=== PATIENT | female | born 1990 | race African-American/Black ===

== ENCOUNTER 2018-08-28 15:29 | Emergency (ER) | payer BC, OTHER ==
[~2018-08-28] VITALS: Ht 160 cm; Wt 64.7 kg
[2018-08-28 16:04] LABS: CLARITY,URINE SLIGHTLY CLOUDY (Clear); COLOR,URINE YELLOW (Yellow); GLUCOSE, URINE NEGATIVE (Neg); KETONES,URINE NEGATIVE (Neg); LEUKOCYTE ESTERASE ,URINE NEGATIVE (Neg); NITRITES, URINE NEGATIVE (Neg); OCCULT BLOOD,URINE NEGATIVE (Neg); PROTEIN,URINE NEGATIVE (Neg); URINE HCG NEGATIVE (NEG); UROBILINOGEN,URINE 0.2 E.U/dL (0.2-1.0)
[2018-08-28 16:05] LABS: BASOPHILS % (AUTO) 0.2 % (0-1); EOSINOPHILS # (AUTO) 0.1 X10'3 (0-0.9); EOSINOPHILS % (AUTO) 0.6 % (0-6); HEMATOCRIT 40.1 % (35.0-45.0); HEMOGLOBIN 13.3 g/dl (12.0-16.0); LYMPHOCYTES # (AUTO) 2.8 X10'3 (1.1-4.8); LYMPHOCYTES % (AUTO) 32.4 % (21-51); MEAN CORPUSCULAR HEMOGLOBIN 28.2 PG (27.0-31.0); MEAN CORPUSCULAR HGB CONC 33.3 % (33.0-36.5); MEAN CORPUSCULAR VOLUME 84.9 FL (78-98); MEAN PLATELET VOLUME 8.4 FL (7.4-10.4); MONOCYTES # (AUTO) 0.6 X10'3 (0-0.9); MONOCYTES % (AUTO) 6.8 % (2-12); NEUTROPHILS # (AUTO) 5.1 X10'3 (1.8-7.7); PLATELET COUNT 290 X10'3 (140-440); RED BLOOD COUNT 4.72 X10'6 (4.20-5.60); RED CELL DISTRIBUTION WIDTH 13.7 % (11.5-14.5); WHITE BLOOD COUNT 8.6 X10'3 (4.5-11.0)
[2018-08-28 16:05] LABS: UA COLLECTION TYPE CLN CATCH MIDSTREAM
[2018-08-28 16:15] LABS: BACTERIA,URINE 1+ /HPF (Neg); MUCUS STRANDS MODERATE /LPF (Neg); RBC,URINE NONE SEEN /HPF (0-2); SQUAMOUS EPITHELIAL CELL,UR MANY /LPF (FEW); WBC,URINE 0-4 /HPF (0-4)
[2018-08-28 16:19] LABS: ALANINE AMINOTRANSFERASE 20 U/L (12-78); ALKALINE PHOSPHATASE 110 IU/L (46-116); ANION GAP 11 (8-16); ASPARTATE AMINO TRANSFERASE 21 U/L (10-37); BILIRUBIN,TOTAL 0.2 MG/DL (0.1-1.0); BLOOD UREA NITROGEN 13 MG/DL (7-18); BUN/CREATININE RATIO 17.8 (6.6-38.0); CALCIUM 9.1 MG/DL (8.5-10.1); CHLORIDE 102 MMOL/L (99-107); CREATININE 0.73 MG/DL (0.40-0.90); GLUCOSE 81 MG/DL (70-104); POTASSIUM 3.5 MMOL/L (3.5-5.1); SODIUM 139 MMOL/L (135-145); TOTAL CARBON DIOXIDE 25.9 MMOL/L (24-32); eGFR > 90 ML/MIN
[2018-08-28 16:27] LABS: PROTHROMBIN TIME 10.2 SECONDS (9.0-12.0)
[2018-08-28] MEDS ORDERED: ondansetron/PF 4mg/2ml inj IV ONE (16:30)
[2018-08-28] MEDS ORDERED: morphine 4 MG/ML inj SYRINge IV ONE (16:30)
[2018-08-28] MEDS ORDERED: orphenadrine citrate 60mg/2ml inj. IM ONE (16:55)
[2018-08-28] MEDS ORDERED: dexamethasone sod phosphate 10mg/ml inj IV STA (16:55)
[2018-08-28] MEDS ORDERED: ketorolac trometh. 30mg/ml inj. IV ONE (16:55)
[2018-08-28] MEDS ORDERED: CYCL-1 PO (17:41)
[2018-08-28] MEDS ORDERED: TRAM50TA2 PO (17:41)
[2018-08-28] MEDS ORDERED: IBUP-1986 PO (17:41)
[2018-08-28 17:53] VITALS: BP 134/66
== END 2018-08-28 17:55 | disposition home or self-care (01) ==
LOC: ER 15:30
DX: R10.31 Right lower quadrant pain (principal); M54.5 Low back pain
CPT/HCPCS: 36415; 80053; 81001; 81025; 85025; 85610; 96372; 96374; 96375; 99284; J1100; J1885; J2270; J2360; J2405